=== PATIENT | female | born 1955 | race African-American/Black ===

== ENCOUNTER → 2016-11-02 | Outpatient (CLI) | payer OTHER ==
[~2016-11-02] MED LIST: ASPIRIN81 M2; COZAAR; CRESTOR; CYMBALTA; FISH OIL300 MG; LUBRICANT EYE1 EACH; NEURONTIN; NOVOLOG100 U/M1; PROTONIX; VICTOZA0.6 MG/0.1; VITAMIN D250000 UNIT; VOLTAREN PO
--- NOTE | ~2016-11-02 | CR97 ---
[facility] A Service of [facility] & [facility] RADIOLOGY TEXT RESULTS PATIENT: REJI TUCKER LOCATION: [facility] : 53 UNIT #: [id number] AGE: [address]: Alf Varela MD SEX: F ORDER DR: [id number] [facility]. [place], [place] [address] [id number] O MR#: [id number] Acc #: [id number] NAME: REJI TUCKER. : 1955 SEX: F STUDY DATE/TIME: 11/02/2016 9:07 UNIT: [facility] ROOM: STUDY DESCRIPTION: CR Esophagram Attending Physician: Alf Varela M.D. Referring Physician: Alf Varela M.D. Ordering Physician: Alf Varela M.D. Primary Care Physician: Generic Doctor Not In System MEDICAL IMAGING REPORT This report is preliminary unless electronic signature is present EXAM Esophagram HISTORY Sensation of food sticking and difficulty swallowing over the upper esophagus. TECHNIQUE Esophagus was examined with rapid cine spot films over the hypopharynx and upper esophagus with swallowing as well as overhead spot films of the esophagus and down to the gastroesophageal junction with thick and thin barium. A barium pill was swallowed as well. A total of 10 overhead spot films were obtained with fluoroscopy of time 1.2 minutes. FINDINGS The swallowing mechanism is normal. The upper esophagus is widely patent. There is mild extrinsic compression of the posterior wall of the esophagus by cervical osteophytes at C5-6 and C6-7. Distally the esophagus shows normal motility with no evidence of stricture, mass or mucosal irregularity. No strictures seen across the gastroesophageal junction. A barium tablet 15.0 mm in diameter was swallowed without difficulty. IMPRESSION Normal esophagram. Dictated by... Mitchel Lundberg M.D. THIS IS AN ELECTRONICALLY VERIFIED REPORT Mitchel Lundberg M.D. at 11/02/2016 4:33 PM MATHIEU/terry TD: 11/02/2016 13:27 [facility]. [facility] A Service of [facility] & [facility] RADIOLOGY TEXT RESULTS PATIENT: REJI TUCKER LOCATION: [facility] #: [id number] : 53 UNIT #: [id number] AGE: [address]: Alf Varela MD SEX: F ORDER DR: DERREK #: [id number] MEDICAL IMAGING REPORT Page 1 of 1 COPY
== END | disposition home or self-care (01) ==
LOC: CRAD 08:33
DX: R13.10 Dysphagia, unspecified (principal)
CPT/HCPCS: 74220